=== PATIENT | male | born 1970 | race Caucasian/White ===

== ENCOUNTER 2025-08-29 11:38 | Emergency (ER) | payer BC, SELFPAY ==
--- OUTSIDE RECORDS SUMMARY | 2025-08-29 11:43 | XMS_ITS | Patient Health Record ---
Author Organization [facility] Address [address] [place] [address] Care Team Providers Care Email Manager Name Role Phone Addis Og Primary Care Provider [phone] ADDIS OG Unavailable Unavailable Allergies Allergen (clinical drug ingredient) Drug/Non Drug Allergy documented on EMR Reaction Allergy Type Onset Date Status codeine Codeine Unknown Drug Allergy Active Reason For Referral No Information Medications Medication SIG (Take, Route, Frequency, Duration) Notes Start Date End Date Status Losartan Potassium 50 MG Tablet Take 1 tablet by mouth twice daily; Duration: 30 Active amLODIPine Besylate 5 MG Tablet 1 tablet Orally Once a day; Duration: 30 days 04/16/2023 Not-Takin g Immunizations Vaccine Route Administration Date Status Comme nts Flucelvax Trivalent, Syringe 0.5 mL, PF Unknown 024 Refused Social History Tobacco Use: Social History Observation Description Date Details (start date - stop date) Current Smoker NA - NA Social History Depression Screening Social Info Question Answer Notes PHQ-9 Little interest or pleasure in doing thin gs Not at all Feeling down, depressed, or hopeless Not at all Trouble falling or staying asleep, or sleeping t oo much Not at all Feeling tired or having little energy Not at all Poor appetite or overeating Not at all Feeling bad about yourself, or that you are a failure, or have let yourself or your family down Not at all Trouble concentrating on thi ngs, such as reading the newspaper or watching television Not at all Moving or speaking so slowly that other people could have noticed. Or the opposite ? being so fidgety or restless that you have been moving around a lot more than usual Not at all Thoughts that you would be b roel off , or of hurting yourself in some way Not at all Total Score 0 Drugs/Alcohol: Social Info Question Answer Notes Alcohol Screen (Audit-C) Did you have a drink containing alcohol in the past year? Yes How often did you have a drink containing alcohol in the past year? 4 or more times a week (4 points) Points 4 Interpretation Positive Tobacco Use: Social Info Question Answer Notes xTobacco Use/Smoking Are you a current smoker How often do you smoke cigarettes? every day How many cigarettes a day do you smoke? 09-10 Section Notes: 08/08/22 PHQ9 08/27/23 PHQ9 09/15/24 PHQ9 08/08/22 PHQ9 08/08/22 PHQ9 08/27/23 PHQ9 08/08/22 PHQ9 08/08/22 PHQ9 08/08/22 PHQ9 08/08/22 PHQ9 08/08/22 PHQ9 08/08/22 PHQ9 Problems Problem Type SNOMED Code ICD Code Onset Dates Problem Status W/U Status Risk Notes Problem Tobacco user (748355949) Nicotine dependence, cigarettes, uncomplicated (F17.210) Active confirmed Problem Essential hypertension (72674665) Essential hypertension (I10) Active confirmed Problem Hypersomnia (26063358) Hypersomnia (G47.10) Active confirmed Vital Signs Heart Rate 101 /min 09/15/2024 Temperature 98.1 degrees Fahrenheit 09/15/2024 Respiratory Rate 20 /min 09/15/2024 Height-cm 177.8 cm 09/15/2024 Oximetry 99 % 09/15/2024 Blood pressure diastolic 84 mm Hg 09/15/2024 Weight-kg 66.68 kg 09/15/2024 Height 70 in 09/15/2024 Blood pressure systolic 130 mm Hg 09/15/2024 Weight 147 lbs 09/15/2024 BMI 21.09 kg/m2 09/15/2024 Encounters Encounter Location Date Provider Diagnosis [facility] [address] [address] 09/15/2024 Addis Og Essential hypertension I10 ; Acute sinusitis J01.90 ; Depression screen Z13.31 ; Encounter for immunization Z23 and Immunization not carried out because of patient refusal Z28.21 [facility] [address] [address] 09/12/2024 Addis Og Essential hypertension I10 Assessments Encounter Date Diagnosis (ICD Code) Assessment Notes Treatment Notes Treatment Clinical Notes Section Notes 09/12/2024 Essential hypertension (ICD-10 - I10) 09/15/2024 Essential hypertension (ICD-10 - I10) Recheck in 6 months. 09/15/2024 Acute sinusitis (ICD-10 - J01.90) Increase fluids, take medication as directed. RTC if no improvement with treatment. 09/15/2024 Depression screen (ICD-10 - Z13.31) 09/15/2024 Encounter for immunization (ICD-10 - Z23) 09/15/2024 Immunization not carried out because of patient refusal (ICD-10 - Z28.21) Plan Of Treatment No Information Medications Administered Medication Instructions Date of Administration Dosage Notes dexAMETHasone 02/13/2023 8 mg [id number] Patient tolerated well. Ketorolac Tromethamine 08/27/2023 60 mg wy [id number] Patient tolerated well. Medical (General) History Medical History History ICD Code hypertension Surgical History Surgery Date(Month/Year) right hand surgery x 24 hernia repair Hospitalization History Reason Date(Month/Year) snake bite 07/2022
--- OUTSIDE RECORDS SUMMARY | 2025-08-29 11:43 | XMS_ITS | Clinical Summary ---
Author Organization [facility] Address [address] [address] [place] [address] Phone Care Team Providers Care [facility] Food Service Worker Name Role Phone Unavailable Primary Care Provider Unavailabl e Allergies Active Allergy Reactions Criticality Noted Date Comments Gabby Camejo High 04/13/2023 Medications losartan (COZAAR) 50 mg tablet Take 50 mg by mouth 2 times daily. Active Social History Tobacco Use Types Packs/Day Years Used Date Smoking Tobacco: Every Day Cigarettes Tobacco Cessation:Ready to Q uit: Not Asked; Counseling Given: Not Answered Alcohol Use Standard Drinks/Week Comments Yes 0 (1 standard drink = 0.6 oz pur e alcohol) 1-2 to 5-6 beers/day Feeling Safe Answer Date Recorded Are you in a relationship wi th someone who hurts you emotionally and/or physically? No 04/13/2023 Sex and Gender Information Value Date Recorded Sex Assigned at Not on file Legal Sex Male 11:17 AM CDT Gender Identity Not on file Sexual Orientation Not on file Last Filed Vital Signs Vital Sign Reading Time Taken Comments Blood Pressure 151/95 04/13/2023 12:15 PM CDT Pulse 68 04/13/2023 12:15 PM CDT Temperature 36.4 C (97.5 F) 04/13/2023 11:18 AM CDT Respiratory Rate 16 04/13/2023 12:1 5 PM CDT Oxygen Saturation 95% 04/13/2023 12: 15 PM CDT Inhaled Oxygen Concentration - - Weight 65.7 kg (144 lb 12.8 oz) 023 11:18 AM CDT Height 177.8 cm (5' 10 ) 04/13/2023 11: 18 AM CDT Body Mass Index 20.78 04/13/2023 11:18 AM CDT Plan of Treatment Health Maintenance Due Date Last Done Comments DTAP/TDAP/TD VACCINES (1 - Tdap) 12/28/1990 HEPATITIS B VACCINES (1 of 3 - 19+ 3-dose series) 06/1991 COLORECTAL SCREENING 12/28/2016 Colorectal Cancer Screening 12/28/2016 FIT-DNA Q 3 years 12/28/2016 FIT/FOBT Q 1 year 12/28/2016 Flex Sig/CT Colonography Q 5 years 12/28/2016 ZOSTER VACCINE (1 of 2) 12/28/2021 INFLUENZA VACCINE (#1) 2025 Insurance [employer] BLUE ACCESS/TRUE BLUE PPO
[2025-08-29 12:07] VITALS: BP 173/90; PULSE 88; RESP 17; TEMP 36.3; O2SAT 98; BMI 25.8
--- NOTE | 2025-08-29 12:59 | CTR_ITS ---
PROCEDURE INFORMATION: Exam: CT Lumbar Spine Without Contrast Exam date and time: 08/29/2025 1:25 PM Age: 54 years old Clinical indication: Injury or trauma; Fall; Blunt trauma (contusions or hematomas); Additional info: Persistent back pain S/P fall off ladder 3 weeks ago TECHNIQUE: Imaging protocol: Computed tomography of the lumbar spine without contrast. Radiation optimization: All CT scans at this facility use at least one of these dose optimization techniques: automated exposure control; mA and/or kV adjustment per patient size (includes targeted exams where dose is matched to clinical indication); or iterative reconstruction. COMPARISON: No relevant prior studies available. RADIATION DOSE METRICS: Total DLP (mGy-cm): 347.91 FINDINGS: Bones/joints: No acute fracture. Normal alignment. L1-L2: No significant disc bulge or herniation. No spinal canal stenosis. No neural foraminal narrowing. L2-L3: Mild diffuse disc bulge. No spinal canal stenosis. Mild bilateral neural foraminal narrowing. L3-L4: Diffuse disc bulge with mild spinal canal stenosis. Moderate right and moderate to marked left neural foraminal stenosis. L4-L5: Diffuse disc bulge with bilateral subarticular recess narrowing and neural foraminal narrowing. Mild to moderate spinal canal stenosis. Moderate to marked right and severe left neural foraminal narrowing. L5-S1: No significant disc bulge or herniation. No spinal canal stenosis. Mild to moderate bilateral neural foraminal narrowing. Soft tissues: Unremarkable. CT/CT lumbar spine wo con* [id number] IMPRESSION: 1. L4-L5 degenerative disease with mild to moderate canal stenosis and severe left, moderate to marked right neural foraminal narrowing, which may affect the exiting L4 nerve roots. 2. L3-L4 mild canal stenosis with moderate right and moderate to marked left neural foraminal stenosis. 3. Additional mild bilateral foraminal narrowing at L2-L3 and mild to moderate bilateral foraminal narrowing at L5-S1. 4. No acute lumbar spine fracture.
[2025-08-29 13:07] VITALS: PULSE 75; O2SAT 97
--- NOTE | 2025-08-29 14:29 | W.ED.BACK ---
HPI - Back Pain/Injury General: Chief Complaint: Back Pain/Injury Stated Complaint: low back pain Time Seen by Provider: 08/29/25 12:05 History of Present Illness: 54-year-old male presenting emergency department with persistent low back pain predominantly right low back and hip that he has had for about 3 to 4 weeks after falling off a ladder, reports that he had some left leg partial numbness/tingling immediately after which resolved, he reports over the last 4 to 5 days his pain has increased, he also endorses some intermittent tingling to the bilateral legs which are not currently present and migrate between the 2 sides, he denies any vomiting or diarrhea, denies inability to walk, he has been working over the last few days, he also denies any incontinence of urine or stool, Related Data Previous Rx's ?Medication ?Instructions ?Recorded cyclobenzaprine 10 mg tablet 10 mg PO TID PRN muscle spasm #30 08/29/25 tabs diclofenac sodium 1 % topical gel 4 g topical QID #100 grams 08/29/25 (Voltaren Arthritis Pain) ibuprofen 600 mg tablet 600 mg PO Q6H PRN pain #30 tabs 08/29/25 Allergies Allergy/AdvReac Type Severity Reaction Status Date / Time hydrocodone Allergy ALGY-Hives Verified 08/29/25 12:16 oxycodone Allergy ALGY-Hives Verified 08/29/25 12:16 Physical Exam Narrative: EXAM NARRATIVE: Gen: A&Ox4, no acute distress, nontoxic appearing HEENT: Normocephalic, atraumatic, no scleral icterus, external ears normal, moist mucous membranes Neck: Supple, full range of motion, no observable masses Lungs: No Respiratory distress, Lungs clear to auscultation bilaterally no rales, rhonchi, wheezing CV: Regular rate and rhythm, no murmur, no pitting edema to lower extremities bilaterally Abdomen: Soft, nondistended, nontender to palpation MSK: No joint swelling, FROM all 4 extremities, patient with tenderness palpation to the right paralumbar region and specifically to the superior aspect of the PSIS and sacrum, there is some mild tenderness to the upper lumbar region, there is no bruising or deformity to the midline spine Skin: No rashes, petechiae, lesions. Normal color per patient. Neuro: Alert and oriented, no slurred speech, sensation and strength grossly intact all 4 extremities, specifically sensation intact to the bilateral lower extremities in all dermatomal distributions, strength 5 out of 5 to bilateral hip flexion knee flexion extension ankle plantar and dorsi flexion, resisted great toe extension Psych: Appropriate for situation. Course Vital Signs: Vital signs: Vital Signs Temperature 97.4 F L 08/29/25 12:07 Pulse Rate 75 08/29/25 13:07 Respiratory Rate 17 08/29/25 12:07 Blood Pressure 173/90 08/29/25 12:07 Pulse Oximetry 97 08/29/25 13:07 Oxygen Delivery Me thod Room Air 08/29/25 12:07 MDM - Back Pain/Injury Medical Decision Making 54-year-old male no known past medical history but does not routinely seek medical follow-up, presenting with predominantly right-sided and mid low back pain after falling off a ladder 3 weeks ago, patient had some numbness of the left leg after the fall for a few days which resolved, never full numbness, no motor weakness, has been ambulatory and working since, reports some tingling paresthesias bilaterally to the lower extremities migratory and intermittent in nature with persistent pain that has worsened over the last 4 days associated with increased exertion and work. His neurologic exam in the ED is normal, he has no evidence of acute cord compression clinically, his CT scan shows degenerative changes but no acute fracture, recommend muscle relaxants, NSAIDs, physical therapy, [facility] recommend he follow-up with a PCP there to establish with physical therapy for further care. Return precautions discussed prior to discharge Labs Radiology Impressions Lumbar Spine CT 08/29/25 12:59 IMPRESSION: 1. L4-L5 degenerative disease with mild to moderate canal stenosis and severe left, moderate to marked right neural foraminal narrowing, which may affect the exiting L4 nerve roots. 2. L3-L4 mild canal stenosis with moderate right and moderate to marked left neural foraminal stenosis. 3. Additional mild bilateral foraminal narrowing at L2-L3 and mild to moderate bilateral foraminal narrowing at L5-S1. 4. No acute lumbar spine fracture. All radiology interpretation(s) finalized by discharge ED provider radiology interpretation(s): CT lumbar with multiple degenerative areas of stenosis but no acute fracture Discharge Plan Discharge Patient Disposition: Home Clinical Impression: Low back pain Qualifiers: Chronicity: acute Back pain laterality: right Sciatica presence: with sciatica Sciatica laterality: bilateral sciatica Qualified Code(s): M54.42 - Lumbago with sciatica, left side Condition: Stable Prescriptions: New ibuprofen 600 mg tablet 600 mg PO Q6H PRN (Reason: pain) Qty: 30 0RF cyclobenzaprine 10 mg tablet 10 mg PO TID PRN (Reason: muscle spasm) Qty: 30 0RF diclofenac sodium [Voltaren Arthritis Pain] 1 % gel 4 g topical QID Qty: 100 0RF Rx Instructions: apply to single knee, ankle, foot; for foot includes sole/toes/top of foot Discharge Orders: Discharge ED (Routine); Ordered 08/29/25 Ordered By: Benja Adames Patient Instructions: Patient Portal & Danyelle Instructions, Acute Low Back Pain (ED) Print Language: Croatian Coding Level of Care Code ED Telecommunications Engineer for Zohreh Londono
[2025-08-29 14:55] VITALS: BP 127/86; PULSE 75; O2SAT 96
== END 2025-08-29 15:05 | disposition home or self-care (01) ==
PROVIDERS: Emergency Provider Student in an Organized Health Care Education/Training Program
DX: M54.42 Lumbago with sciatica, left side (principal)
CPT/HCPCS: 72131; 96372; 99284; J1885